=== PATIENT | male | born 1965 | race Caucasian/White ===

== ENCOUNTER 2023-11-14 07:16 | Day surgery (SDC) | payer OTHER ==
[2023-11-12 11:23] LABS: Absolute Eosinophils 0.1 K/uL (0-0.5); Absolute Lymphocytes (CBC) 2.8 K/uL (0.7-4.9); Absolute Monocytes 0.7 K/uL (0.1-1.3); Basophils % 0.7 % (0-1.3); Hematocrit 45.5 % (39.6-49.0); Hemoglobin 15.3 g/dL (13.6-17.9); Lymphocytes % 41.9 % (15.3-44.8); MCH 32.1 pg (27.0-35.0); MCHC 33.6 g/dL (32.0-36.0); MCV 95.6 fL (80-100); MPV 8.6 fL (7.6-11.3); Monocytes % 10.3 % (3.3-12.3); Neutrophils % 46.1 % (41.7-73.7); Nucleated Red Blood Cells % 0.1 % (0-0); Platelets 251 thou/uL (152-406); RBC Red Blood Cell Count 4.76 M/uL (4.33-5.43); Red Cell Distribution Width 12.9 % (12.1-15.2)
--- NOTE | 2023-11-12 16:28 | EKG ---
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
[2023-11-14] MEDS: Ringers Lactate 1,000 ML IV ONE (07:30)
[2023-11-14] MEDS ORDERED: LIDOCAINE 1% MPF 5 ML VIAL ONE (08:31)
[2023-11-14] MEDS ORDERED: propofoL 200 MG/20 ML VIAL IV ONE (08:31)
[2023-11-14 14:31] VITALS: BP 115/72; TEMP 98.1; O2SAT 99
== END 2023-11-14 10:27 | disposition home or self-care (01) ==
LOC: OR 07:16
PROVIDERS: ATTEND Surgery
PROC: 0DBN8ZX Excision of Sigmoid Colon, Via Natural or Artificial Opening Endoscopic, Diagnostic (ICD-10-PCS; 2023-11-14)
PROC: 0DBH8ZX Excision of Cecum, Via Natural or Artificial Opening Endoscopic, Diagnostic (ICD-10-PCS; principal; 2023-11-14 08:30)
DX: Z12.11 Encounter for screening for malignant neoplasm of colon (principal); N42.9 Disorder of prostate, unspecified; K57.30 Diverticulosis of large intestine without perforation or abscess without bleeding; D12.0 Benign neoplasm of cecum; K64.8 Other hemorrhoids; K63.5 Polyp of colon
CPT/HCPCS: 93005; 85025; 80048; 36415; 88305; 45380; J2704; J2001; J7120